=== PATIENT | female | born 1965 | race Two or more races ===

== ENCOUNTER 2018-05-13 14:28 | Emergency (ER) ==
[~2018-05-13] VITALS: Ht 165.1 cm; Wt 81.4 kg
[2018-05-13 14:33] VITALS: BP 151/91
== END 2018-05-13 18:10 | disposition left against medical advice (07) ==
LOC: ER 14:29
DX: R21 Rash and other nonspecific skin eruption (principal); Z53.21 Procedure and treatment not carried out due to patient leaving prior to being seen by health care provider

== ENCOUNTER 2019-03-20 08:38 | Emergency (ER) | payer MEDICAID ==
[~2019-03-20] VITALS: Ht 170.2 cm; Wt 80.0 kg
[2019-03-20 08:41] VITALS: BP 137/95
[2019-03-20] MEDS ORDERED: DOXY100C43 PO (10:10)
[2019-03-20] MEDS ORDERED: IBUP-1984 PO (10:10)
[2019-03-20] MEDS ORDERED: MUPI22OI30 TOP (10:10)
[2019-03-20] MEDS ORDERED: ibuprofen tablet 400 MG TABLET PO ONE (10:15)
[2019-03-21] MEDS ORDERED: DOXY100C43 PO (05:00)
[2019-03-21] MEDS ORDERED: MUPI22OI30 TOP (05:00)
[2019-03-21] MEDS ORDERED: IBUP-1984 PO (05:00)
== END 2019-03-20 10:46 | disposition home or self-care (01) ==
LOC: ER 08:39
DX: L73.9 Follicular disorder, unspecified (principal); L04.1 Acute lymphadenitis of trunk; F15.90 Other stimulant use, unspecified, uncomplicated; Z88.8 Allergy status to other drugs, medicaments and biological substances
CPT/HCPCS: 82948; 99283

== ENCOUNTER 2019-03-21 03:53 | Emergency (ER) | payer MEDICAID ==
[~2019-03-21] VITALS: Ht 165.1 cm; Wt 65.4 kg
[~2019-03-21 03:53] MED LIST: DOXY100C43 PO; IBUP-1984 PO; MUPI22OI30 TOP
--- NOTE | 2019-03-21 04:26 | NUR ---
[place] for the antibiotics she was prescribed earlier yesterday. She states that she filled them but cannot remember what she did with them. Patient also reports smoking cigarettes and doing, "a little" methamphetamine tonight. Triage note reports a fever. On arrival to ED 4 she has an oral temperature of 98.8. Her wound is open to air with no purulent drainage and some redness to the wound periphery. She denies any other symptoms except pain and puritis to the wound.
[2019-03-21] MEDS ORDERED: DOXYCYCLINE 100MG CAPSULE PO STA (04:58)
[2019-03-21] MEDS ORDERED: acetaminophen 325mg tablet PO ONE (05:00)
[2019-03-21] MEDS ORDERED: IBUP-1984 PO (05:00)
[2019-03-21] MEDS ORDERED: MUPI22OI30 TOP (05:00)
[2019-03-21] MEDS ORDERED: ondansetron 4mg rapidly disintigrating tab PO ONE (05:00)
[2019-03-21] MEDS ORDERED: DOXY100C43 PO (05:00)
[2019-03-21 05:21] VITALS: BP 143/89
== END 2019-03-21 05:22 | disposition home or self-care (01) ==
LOC: ER 03:53
DX: L73.9 Follicular disorder, unspecified (principal); L01.00 Impetigo, unspecified; E11.9 Type 2 diabetes mellitus without complications; F15.90 Other stimulant use, unspecified, uncomplicated; Z56.0 Unemployment, unspecified; Z59.0 Homelessness; Z88.8 Allergy status to other drugs, medicaments and biological substances; Z79.2 Long term (current) use of antibiotics; Z79.899 Other long term (current) drug therapy
CPT/HCPCS: 82948; 99284